=== PATIENT | male | born 1975 | race African-American/Black ===

== ENCOUNTER 2016-10-17 19:01 | Emergency (ER) | payer OTHER ==
[~2016-10-17] VITALS: Ht 188 cm; Wt 89.4 kg
[2016-10-17 19:07] VITALS: BP 132/83; PULSE 57; TEMP 36.8; O2SAT 97; Ht 188 cm; Wt 89.4 kg
[2016-10-17] MEDS ORDERED: PROPARACAINE HCL 0.5% OP SOLN 15 ML BTL OP STA (19:13)
--- NOTE | 2016-10-17 21:22 | EMERGENCY ROOM VISIT NOTE ---
History Report prepared by Mahad: Radha Hernandez Under the Supervision of: Dr. Zackery Gamboa M.D. First contact with patient: 19:13 Chief Complaint: EYE ASSESSMENT Stated Complaint: DETACHED RETNA L EYE History of Present Illness The patient is a 41 year old male who presents to the Emergency Room for an eye assessment. The patient states that he was hit in the left eye yesterday with a ball and has since had blurry vision. He states that when he awoke this morning there was a white film covering his vision. He reports that it is painful and feels like it is being pushed out of his head by something. The patient notes the pain is worse with movement. He states that he went to medical to get flushed out. The patient reports that they sent him here when his symptoms weren 't relieved. The patient notes he wears glasses all the time. Source of History: patient Onset: yesterday Position: eye (left) Quality: other ("something pushing it out") Timing: other (episode) Modifying Factors (Worsening): movement Note: The patient complains of visual changes and discharge from his eye. Review of Systems See HPI for pertinent positives and negatives. A total of ten systems were reviewed and were otherwise negative. Past Medical & Surgical Medical Problems: (1) Wears glasses Family History No pertinent family history Social History Smoking Status: Current Every Day Smoker Alcohol Use: none Marital Status: single Housing Status: other (incarcerated) Occupation Status: other (prisoner) Current/Historical Medications Scheduled Erythromycin Opth (Erythromycin Opth), 1 APPLN OPL QID Allergies Coded Allergies: Grass (Verified Allergy, Intermediate, Allergy Symptoms, 10/17/16) POLLEN (Verified Allergy, Intermediate, Allergy Symptoms, 10/17/16) Physical Exam Vital Signs Date Time Temp Pulse Resp B/P (MAP) Pulse Ox O2 Delivery O2 Flow Rate FiO2 10/17/16 19:07 36.8 57 19 132/83 97 Room Air Right Eye Acuity: 20/25 with glasses Left Eye Acuity: 20/30 with glasses Physical Exam GENERAL: Awake, alert, well-appearing, in no distress HENT: Normocephalic, atraumatic. Oropharynx unremarkable. EYES: Left pupil is sluggish compared to right, but still reactive. Right eye has conjunctival and scleral injection with mild ciliary flush. No corneal or eye lid foreign body appreciated. NECK: Supple. No nuchal rigidity. FROM. No JVD. RESPIRATORY: Clear to auscultation. CARDIAC: Regular rate, normal rhythm. Extremities warm and well perfused. Pulses equal. ABDOMEN: Soft, non-distended. No tenderness to palpation. No rebound or guarding. No masses. RECTAL: Deferred. MUSCULOSKELETAL: Chest examination reveals no tenderness. The back is symmetrical on inspection without obvious abnormality. There is no CVA tenderness to palpation. No joint edema. LOWER EXTREMITIES: Calves are equal size bilaterally and non-tender. No edema. No discoloration. NEURO: Normal sensorium. No sensory or motor deficits noted. SKIN: No rash or jaundice noted. Medical Decision & Procedures Medications Administered Medications (Trade) Dose Ordered Sig/Kev Route Start Time Stop Time Status Last Admin Dose Admin Proparacaine HCl (Alcaine 0.5% Oph Soln) 1 drops NOW STAT OP 10/17/16 19:13 10/17/16 19:15 DC 10/17/16 19:24 1 DROPS Erythromycin (Erythromycin Oph Oint) 1 appln NOW ONCE OP 10/17/16 21:30 10/17/16 21:31 DC 10/17/16 21:42 1 APPLN Procedure Slit Lamp Examination Indication: Blurry Vision The left eye was prepped with topical proparacaine. Slit lamp examination was performed in the standard fashion. Cornea appeared with punctate fluorescein uptake. Anterior chamber clear. Scleral injection with mild ciliary flush present. Clear serous discharge present. Fluorescein examination performed and revealed punctate fluorescein uptake consistent with abrasion. No foreign bodies noted. Negative Everett sign. The patient tolerated the procedure well without complication. ED Course 1912: Ordered Proparacaine HCl 1 drop OP. 2023: The patient was evaluated in room C3. A complete history and physical exam was performed. 2129: Ordered Erythromycin 1 appln OP. 2148: I reevaluated the patient. Discussed results and discharge instructions: He verbalized understanding and agreement. The patient is ready for discharge. Medical Decision I reviewed the patient's past medical history, medications, and the nursing notes as described above. Differential diagnoses include corneal abrasion, ulceration, traumatic iritis, vitreous hemorrhage. Patient is a 41-year-old gentleman who presents to emergency department with left eye blurred vision and report of irregular pupils after being hit with a basketball yesterday per history of present illness. Arrival patient is in no acute distress. Afebrile stable vital signs. On further questioning pain patient reports on his upper eyelid where there is slight swelling and reproducible with palpation. EOMI without pain. Pupils reactive however left pupil slightly sluggish c/w traumatic iritis in setting of mild ciliary flush. Limited bedside ultrasound of the patient's left eye was negative for retinal detachment or vitreous detachment or hemorrhage. Eyelids examined and were negative for foreign bodies. Everett sign negative. Slit lamp exam with anterior chamber that is clear. Mild punctate fluorescein uptake was present consistent with corneal abrasion. Patient was given erythromycin ointment and instructions to follow-up with ophthalmology in the next couple of days. Findings and plan for follow-up d/w patient. Patient agreeable and d/c'd per discharge instructions. Impression Primary Impression: Corneal abrasion Additional Impression: Traumatic iritis Scribe Attestation The scribe's documentation has been prepared under my direction and personally reviewed by me in its entirety. I confirm that the note above accurately reflects all work, treatment, procedures, and medical decision making performed by me. Departure Information Dispostion Home / Self-Care Prescriptions Erythromycin Opth (ERYTHROMYCIN OPTH) 12 Appln/3.5 Gm Oint 1 APPLN OPL QID for 7 Days, #1 TUBE Prov: Zackery Gamboa M.D. 10/17/16 Referrals Shayna BOONE (PCP) Deshawn Bauer D.O. Forms HOME CARE DOCUMENTATION FORM, IMPORTANT VISIT INFORMATION, WORK / SCHOOL INSTRUCTIONS Patient Instructions ED Eye Injury Corneal Abrasion, ED Iritis, My [facility] Additional Instructions Please follow up ophthalmology, Dr. Bauer, by calling for an appointment tomorrow to be seen in the next 1-2 days. You have an abrasion of her cornea and also likely a traumatic iritis which will resolve with time. An ultrasound of your eye did not show any evidence of a retinal detachment or vitreous hemorrhage. Your exam did not show signs of an emergent condition. Erythromycin ointment 4 times daily as directed. Return to the emergency department for worsening symptoms as described in the accompanying instructions. Problem Qualifiers
[2016-10-17] MEDS ORDERED: ERYTHROMYCIN OP OINT 5 MG/GM 3.5 GM TUBE OP ONE (21:30)
[2016-10-17] MEDS ORDERED: ERYOPO OPL (21:32)
== END 2016-10-17 22:03 | disposition home or self-care (01) ==
LOC: C.EDB 19:03 → C.EDC 22:03
DX: S05.02XA Injury of conjunctiva and corneal abrasion without foreign body, left eye, initial encounter (principal); H20.9 Unspecified iridocyclitis; W22.8XXA Striking against or struck by other objects, initial encounter; F17.200 Nicotine dependence, unspecified, uncomplicated